=== PATIENT | male | born 1970 | race African-American/Black ===

== ENCOUNTER 2021-09-27 07:07 | Emergency (ER) | payer OTHER ==
[~2021-09-27] VITALS: Ht 185.4 cm; Wt 107.0 kg
[2021-09-27] MEDS ORDERED: morphine 4 MG/ML inj SYRINge IV ONE (07:35)
[2021-09-27 07:38] LABS: BASOPHILS % (AUTO) 0.7 % (0-1); EOSINOPHILS # (AUTO) 0.2 X10'3 (0-0.9); EOSINOPHILS % (AUTO) 3.7 % (0-6); HEMATOCRIT 38.2 % (42.0-52.0); LYMPHOCYTES # (AUTO) 1.1 X10'3 (1.1-4.8); MEAN CORPUSCULAR HEMOGLOBIN 31.1 PG (27.0-31.0); MEAN CORPUSCULAR VOLUME 91.7 FL (78-98); MEAN PLATELET VOLUME 7.8 FL (7.4-10.4); MONOCYTES # (AUTO) 0.4 X10'3 (0-0.9); MONOCYTES % (AUTO) 8.6 % (2-12); NEUTROPHILS # (AUTO) 3.3 X10'3 (1.8-7.7); PLATELET COUNT 249 X10'3 (140-440); RED BLOOD COUNT 4.17 X10'6 (4.70-6.10); RED CELL DISTRIBUTION WIDTH 14.1 % (11.5-14.5)
[2021-09-27 07:56] LABS: ALANINE AMINOTRANSFERASE 41 U/L (12-78); ALBUMIN 3.5 G/DL (3.4-5.0); ALBUMIN/GLOBULIN RATIO 0.9 (1.1-1.5); ALKALINE PHOSPHATASE 82 IU/L (46-116); ANION GAP 9 (8-16); ASPARTATE AMINO TRANSFERASE 23 U/L (10-37); BILIRUBIN,TOTAL 0.7 MG/DL (0.1-1.0); BLOOD UREA NITROGEN 13 MG/DL (7-18); BUN/CREATININE RATIO 11.2 (5.4-32.0); CALCIUM 8.5 MG/DL (8.5-10.1); CHLORIDE 105 MMOL/L (99-107); CREATININE 1.16 MG/DL (0.60-1.10); GLUCOSE 114 MG/DL (70-104); POTASSIUM 3.5 MMOL/L (3.5-5.1); SODIUM 140 MMOL/L (135-145); TOTAL CARBON DIOXIDE 26.5 MMOL/L (24-32); TOTAL PROTEIN 7.5 G/DL (6.4-8.2); eGFR 66 ML/MIN
[2021-09-27] MEDS ORDERED: ASPI-1265 PO (08:33)
[2021-09-27] MEDS ORDERED: ATOR80TA PO (08:33)
[2021-09-27] MEDS ORDERED: NITR0.4T51 SL (08:33)
[2021-09-27] MEDS ORDERED: SACU1TAB4 PO (08:33)
[2021-09-27] MEDS ORDERED: AMLO10TA PO (08:33)
[2021-09-27] MEDS ORDERED: CARV25TA56 PO (08:33)
[2021-09-27] MEDS ORDERED: SPIR25TA5 PO (08:33)
[2021-09-27 10:51] VITALS: BP 146/93
== END 2021-09-27 10:54 | disposition home or self-care (01) ==
LOC: ER 07:08
DX: R07.89 Other chest pain (principal); I10 Essential (primary) hypertension; I25.2 Old myocardial infarction; Z79.899 Other long term (current) drug therapy
CPT/HCPCS: 36415; 71045; 80053; 83735; 83880; 84484; 85025; 93005; 96374; 99285; J2270